=== PATIENT | female | born 1980 | race Caucasian/White ===

== ENCOUNTER 2019-02-02 19:49 | Emergency (ER) | payer OTHER, MEDICAID, SELFPAY ==
--- NOTE | 2019-02-02 19:51 | ED.GENADULT ---
HPI - General Adult General Chief complaint: Seizure Stated complaint: Fit For Care Home Time Seen by Provider: 02/02/19 19:50 Source: patient and police Mode of arrival: other (Police) Limitations: no limitations History of Present Illness HPI narrative: 38-year-old female brought in by police for a fit for usp physical. She reported that earlier today patient had a seizure. Patient states that she has a history of seizures. She states it is because she has a mass on her brain. She states that she has been on ?all of the seizure medicines ?in the past and none of them have worked. She does see a neurologist. She also stated that she had been told that stress makes her seizures worse. She also has other psychiatric illnesses to include bipolar. She was brought in for AFib for usp secondary to her history of seizures. She has not have any of her medicines with her Related Data Home Medications Medication Instructions Recorded Confirmed cyclobenzaprine 10 mg PO TID #0 06/15/17 03/02/18 lithium carbonate 300 mg PO BID #0 06/15/17 03/02/18 quetiapine [Seroquel] 150 mg PO HS #0 06/15/17 03/02/18 venlafaxine 100 mg PO QDAY #0 06/15/17 03/02/18 Previous Rx's Medication Instructions Recorded cyclobenzaprine 10 mg PO Q8HP PRN #20 tab 06/15/17 lithium carbonate 300 mg PO BID #28 cap 02/02/19 nystatin 4 ml PO QID #473 ml 02/02/19 quetiapine [Seroquel XR] 150 mg PO QPM #14 tab 02/02/19 venlafaxine 100 mg PO DAILY #14 tab 02/02/19 Allergies Allergy/AdvReac Type Severity Reaction Status Date / Time tramadol [TRAMADOL] Allergy Unknown Verified 03/02/18 11:44 Review of Systems Constitutional Denies headache(s) ENT Ears, Nose, Mouth, and Throat: Denies headache(s) Comments: Thrush in her mouth Gastrointestinal Gastrointestinal: Denies abdominal pain Genitourinary Denies dysuria Neurologic Denies headache(s) and Reports seizure-like activity Hematologic/Lymphatic Denies easy bleeding and Denies easy bruising PFSH Medical History Bipolar disorder (Acute) Seizure disorder (Acute) Social History Smoking Status: Current every day smoker Social History Smoking Status: Current every day smoker Exam Initial Vital Signs Initial Vital Signs: Vital Signs Temperature 98.5 F 02/02/19 19:59 Pulse Rate 76 02/02/19 19:59 Respiratory Rate 15 02/02/19 19:59 Blood Pressure 116/79 02/02/19 19:59 Pulse Oximetry 98 02/02/19 19:59 Const General: cooperative, well developed and well groomed Orientation: alert, awake and oriented x3 HENMT Mouth: other (White patches in her mouth) Resp Effort & Inspection: normal respiratory effort Cardio Rate: regular rate Skin Lesions: no lesions Rashes: no rashes Neuro General: alert, awake and oriented x3 Cognition: normal cognition Speech: speech normal Extrem General: normal to inspection and capillary refill normal Scores GCS [place] coma scale eye opening: Spontaneous [place] coma scale verbal response: Orientated [place] coma scale motor response: Obey commands [place] coma scale total score: 15 Course Vital Signs - 8 hr 02/02/19 19:59 Temperature 98.5 F Pulse Rate 76 Respiratory Rate 15 Blood Pressure 116/79 Pulse Oximetry 98 Medical Decision Making MDM Narrative Medical decision making narrative: Patient has no signs of trauma. She is fit for confinement I did write 2 weeks worth of medications that we have listed in our computer for her so that she can have them while she is in confinement. She states she is taking other medications but we do not know what those are. No further workup needed in the emergency department Discharge Plan Departure Patient Disposition: Released, Other Clinical Impression: Medical clearance for incarceration Discharge Date/Time: 02/02/19 20:24 Interventions: ED Discharge Assessment Last Done: 02/02/19 20:23 Activity Restrictions/Additional Instructions: Nallely is fit for confinement. I do recommend she be given the medications that she has been given a prescription for. When she is released I recommend that she follow up with her primary care provider. Prescriptions: New lithium carbonate 300 mg capsule 300 mg PO BID Qty: 28 RF: 0 quetiapine [Seroquel XR] 150 mg tablet extended release 24 hr 150 mg PO QPM Qty: 14 RF: 0 venlafaxine 100 mg tablet 100 mg PO DAILY Qty: 14 RF: 0 nystatin 100,000 unit/mL suspension 4 ml PO QID Qty: 473 RF: 0 No Action cyclobenzaprine 10 MG tablet 10 mg PO TID Qty: 0 RF: 0 venlafaxine 100 MG tablet 100 mg PO QDAY Qty: 0 RF: 0 quetiapine [Seroquel] 100 MG tablet 150 mg PO HS Qty: 0 RF: 0 lithium carbonate 300 MG capsule 300 mg PO BID Qty: 0 RF: 0 cyclobenzaprine 10 MG tablet 10 mg PO Q8HP PRNQty: 20 RF: 0
[2019-02-02 19:59] VITALS: BP 116/79; PULSE 76; RESP 15; TEMP 36.9; O2SAT 98; BMI 33.2
== END 2019-02-02 20:24 | disposition home or self-care (01) ==
PROVIDERS: Emergency Provider Emergency Medicine
DX: Z02.89 Encounter for other administrative examinations (principal)
CPT/HCPCS: 99282; 99283

== ENCOUNTER 2019-02-16 18:35 | Emergency (ER) | payer OTHER, MEDICAID, SELFPAY ==
[2019-02-16 18:54] VITALS: BP 136/75; PULSE 101; RESP 21; TEMP 37.1; O2SAT 100; BMI 28.1
--- NOTE | 2019-02-16 18:55 | DI.RAD.S_ITS ---
PROCEDURE: XR CHEST 2V INDICATIONS: SOB TECHNIQUE: 2 views of the chest were acquired. COMPARISON: None. FINDINGS: Surgical changes and devices: None. Lungs and pleura: Lungs are clear. No pleural effusions or pneumothorax. Mediastinum: Mediastinal contours are normal. Heart size is normal. Bones and chest wall: No suspicious bony abnormalities. Soft tissues appear unremarkable. IMPRESSION: No acute cardiopulmonary disease process. Dictated by: Aby Davis MD, PhD on 02/16/2019 at 19:10 Approved by: Aby Davis MD, PhD on 02/16/2019 at 19:10
--- NOTE | 2019-02-16 19:13 | ED.SOB ---
HPI - SOB/Dyspnea General Chief Complaint: Shortness of Breath/Dyspnea Stated Complaint: sob/legs swelling x3-4 days Time Seen by Provider: 02/16/19 18:40 Source: patient Mode of arrival: ambulatory Limitations: no limitations History of Present Illness HPI Narrative: 38-year-old female smoker with recent history of smoking methamphetamines presents to the emergency department with a chief complaint of bilateral lower extremity swelling and some shortness of. She denies any chest pain nor fever or chills. She has not dizzy nor weak or lightheaded. She denies nausea, vomiting or diarrhea. She denies any other medication or dietary change. She denies recent travel, injury or history of clot. MD Complaint: shortness of breath Related Data Home Medications Medication Instructions Recorded Confirmed cyclobenzaprine 10 mg PO TID #0 06/15/17 03/02/18 lithium carbonate 300 mg PO BID #0 06/15/17 03/02/18 quetiapine [Seroquel] 150 mg PO HS #0 06/15/17 03/02/18 venlafaxine 100 mg PO QDAY #0 06/15/17 03/02/18 Previous Rx's Medication Instructions Recorded cyclobenzaprine 10 mg PO Q8HP PRN #20 tab 06/15/17 lithium carbonate 300 mg PO BID #28 cap 02/02/19 nystatin 4 ml PO QID #473 ml 02/02/19 quetiapine [Seroquel XR] 150 mg PO QPM #14 tab 02/02/19 venlafaxine 100 mg PO DAILY #14 tab 02/02/19 furosemide [Lasix] 40 mg PO DAILY #5 tab 02/16/19 Allergies Allergy/AdvReac Type Severity Reaction Status Date / Time tramadol [TRAMADOL] Allergy Unknown Verified 03/02/18 11:44 Review of Systems Constitutional Constitutional: Denies chills, Denies fatigue, Denies fever(s), Denies frequent falls, Denies lethargy and Denies weakness Eyes Eyes: Denies change in vision, Denies eye discharge, Denies irritation and Denies loss of vision ENT Ears, Nose, Mouth, and Throat: Denies change in voice, Denies dizziness, Denies neck pain, Denies sore throat and Denies throat swelling Cardiovascular Cardiovascular: Denies chest pain, Denies irregular heart rhythm, Reports leg edema, Denies lightheadedness, Denies palpitations, Denies dyspnea, Denies dyspnea on exertion and Denies orthopnea Respiratory Respiratory: Denies cough, Denies dyspnea, Denies dyspnea on exertion and Denies wheezing Gastrointestinal Gastrointestinal: Denies abdominal pain, Denies change in bowel habits, Denies diarrhea, Denies nausea and Denies vomiting Genitourinary Genitourinary: Denies hematuria, Denies flank pain, Denies urinary incontinence and Denies urinary urgency Musculoskeletal Musculoskeletal: Denies back pain, Denies muscle weakness, Denies neck pain, Denies numbness and Denies tingling Integumentary/Breasts Skin/Breast: Denies pruritus, Denies erythema, Denies rash and Denies wounds Neurologic Neurologic: Denies behavioral changes, Denies confusion, Denies dizziness, Denies frequent falls, Denies loss of vision, Denies numbness, Denies tingling and Denies weakness Psychiatric Psychiatric: Denies anxiety, Denies behavioral changes, Denies confusion, Denies depression, Denies homicidal ideation and Denies suicidal ideation Endocrine Endocrine: Denies fatigue, Denies flushing and Denies palpitations Hematologic/Lymphatic Hematologic/Lymphatic: Denies easy bruising Allergic/Immunologic Allergic/Immunologic: Denies urticaria, Denies throat swelling and Denies wheezing [facility] Medical History Bipolar disorder (Acute) Seizure disorder (Acute) Social History Smoking Status: Current every day smoker Social History Smoking Status: Current every day smoker Exam Narrative Exam Narrative: GENERAL: [38] year old patient appears stated age. Well-nourished, well-developed patient, in mild distress. HEAD: Atraumatic. Normocephalic. EYES: Pupils equal round and reactive. Extraocular motions intact. No scleral icterus. No injection or drainage. ENT: Nose without bleeding, purulent drainage. Throat without erythema, tonsillar hypertrophy or exudate. Airway patent. NECK: Trachea midline. Non tender CARDIOVASCULAR: Regular rate and rhythm without murmurs, gallops, or rubs. RESPIRATORY: Clear to auscultation. Breath sounds equal bilaterally. No wheezes, rales, or rhonchi. GASTROINTESTINAL: Abdomen soft, non-tender, nondistended. EXTREMITIES: Bilateral lower extremities with 1+ pitting edema BACK: Nontender without deformity or crepitance. No flank tenderness. NEURO: AOx3. SKIN: No rash or erythema of visible areas Initial Vital Signs Initial Vital Signs: Vital Signs Temperature 98.8 F 02/16/19 18:54 Pulse Rate 101 H 02/16/19 18:54 Respiratory Rate 21 02/16/19 18:54 Blood Pressure 136/75 02/16/19 18:54 Pulse Oximetry 100 02/16/19 18:54 Course Orders Ordered: ED Orders 02/16/19 18:44 EKG-12 Lead Routine EKG-12 Lead Stat 02/16/19 18:53 Consult to Respiratory Therapy Evaluate & Treat B Type Natriuretic Peptide Stat Basic Metabolic Panel Stat Blood Culture Stat Complete Blood Count AUTO DIFF Stat Lactate (Lactic Acid) Stat Magnesium Stat Procalcitonin Stat Troponin & CK Cardiac Panel Stat 02/16/19 18:55 XR chest 2V Stat Vital Signs Vital signs: Vital Signs - 8 hr 02/16/19 18:54 Temperature 98.8 F Pulse Rate 101 H Respiratory Rate 21 Blood Pressure 136/75 Pulse Oximetry 100 MDM - SOB/Dyspnea Lab Data Result diagrams: 02/16/19 19:50 02/16/19 19:50 Labs: Lab Results 02/16/19 02/16/19 02/16/19 Range/Units 19:50 19:50 19:50 WBC 8.6 (4.5-11.0) X10^3/uL RBC 3.63 L (4.0-5.2) X10^6/uL Hgb 12.5 (12.0-16.0) g/dL Hct 36.0 (36-46) % MCV 99.3 (80-100) fL MCH 34.4 H (26-34) PG MCHC 34.6 (30-36) % RDW 12.8 (11.6-14.8) % Plt Count 237 (150-400) X10^3/uL Neut % (Auto) 52.0 (50-75) % Lymph % (Auto) 39.9 (25-40) % [place] % (Auto) 5.0 (3-14) % Eos % (Auto) 2.5 (2-4) % Baso % (Auto) 0.6 (0-2) % Neut # (Auto) 4500 (0903-2521) /uL Lymph # (Auto) 3400 (6710-3966) /uL [place] # (Auto) 400 (0-900) /uL Eos # (Auto) 200 (0-450) /uL Baso # (Auto) 100 (0-100) /uL D-Dimer (<230) ng/mL Sodium 139 (137-145) mmol/L Potassium 3.4 (3.4-5.1) mmol/L Chloride 109 H (98-107) mmol/L Carbon Dioxide 22 (22-32) mmol/L BUN 9 (7-17) mg/dL Creatinine 0.70 (0.52-1.04) mg/dL Estimated GFR > 60.0 (>60) mL/min BUN/Creatinine Ratio 12.9 (6-22) Glucose 98 (70-100) mg/dL Lactate (0.7-2.1) mmol/L Calcium 9.6 (8.4-10.2) mg/dL Magnesium 2.0 (1.6-2.3) mg/dL Total Creatine Kinase 70 (30-135) U/L CK-MB (CK-2) TNP CK-MB (CK-2) Rel Index TNP Troponin I < 0.012 (0.01-0.034) ng/mL B-Natriuretic Peptide < 100 (<100) Procalcitonin < 0.05 (<0.5) ng/mL 02/16/19 02/16/19 Range/Units 19:50 19:50 WBC (4.5-11.0) X10^3/uL RBC (4.0-5.2) X10^6/uL Hgb (12.0-16.0) g/dL Hct (36-46) % MCV (80-100) fL MCH (26-34) PG MCHC (30-36) % RDW (11.6-14.8) % Plt Count (150-400) X10^3/uL Neut % (Auto) (50-75) % Lymph % (Auto) (25-40) % [place] % (Auto) (3-14) % Eos % (Auto) (2-4) % Baso % (Auto) (0-2) % Neut # (Auto) (4567-8362) /uL Lymph # (Auto) (8248-2319) /uL [place] # (Auto) (0-900) /uL Eos # (Auto) (0-450) /uL Baso # (Auto) (0-100) /uL D-Dimer < 200 (<230) ng/mL Sodium (137-145) mmol/L Potassium (3.4-5.1) mmol/L Chloride (98-107) mmol/L Carbon Dioxide (22-32) mmol/L BUN (7-17) mg/dL Creatinine (0.52-1.04) mg/dL Estimated GFR (>60) mL/min BUN/Creatinine Ratio (6-22) Glucose (70-100) mg/dL Lactate 0.7 (0.7-2.1) mmol/L Calcium (8.4-10.2) mg/dL Magnesium (1.6-2.3) mg/dL Total Creatine Kinase (30-135) U/L CK-MB (CK-2) CK-MB (CK-2) Rel Index Troponin I (0.01-0.034) ng/mL B-Natriuretic Peptide (<100) Procalcitonin (<0.5) ng/mL Imaging Data Chest x-ray: Radiologist's impression: [place] [address] XRay Report Signed Patient: Nallely [facility]#: [id number] : 1980Acct:[id number] Age/Sex: 38 / FDate of Service: 02/16/19 Loc: ED Accession Number: [id number] Procedure: XR chest 2V Ordering Provider: Jose David Ricks D.O. PROCEDURE: XR CHEST 2V INDICATIONS: SOB TECHNIQUE: 2 views of the chest were acquired. COMPARISON: None. FINDINGS: Surgical changes and devices: None. Lungs and pleura: Lungs are clear. No pleural effusions or pneumothorax. Mediastinum: Mediastinal contours are normal. Heart size is normal. Bones and chest wall: No suspicious bony abnormalities. Soft tissues appear unremarkable. IMPRESSION: No acute cardiopulmonary disease process. Dictated by: Aby Davis MD, PhD on 02/16/2019 at 19:10 Approved by: Aby Davis MD, PhD on 02/16/2019 at 19:10 MDM Narrative Medical decision making narrative: Near the end of the visit the patient states she recently got new couch is and has been sitting them for hours and hours per day with her legs dangling down. This seems like a very likely contributed to bilateral lower extremity edema. She has no signs of heart failure. Though edematous her legs are not red or warm, though cellulitis and DVT are considered their thought much less likely given the bilaterality. Return precautions given, patient has had her questions answered to her apparent satisfaction Discharge Plan Departure Patient Disposition: Home Clinical Impression: Dependent edema Discharge Date/Time: 02/16/19 22:00 Instructions: DI for Dependent Edema Activity Restrictions/Additional Instructions: *You have been diagnosed with [ bilateral edema ] *What to do: *Take medications as directed *Follow up with your primary care provider in 2-3 days, call for an appointment. Let them know you were seen in the Emergency Department and that we ask that you be seen in follow up. Elevate your legs and use compression stockings *Return to ER if you should have any new, worsening or concerning symptoms Prescriptions: New furosemide [Lasix] 40 mg tablet 40 mg PO DAILY Qty: 5 RF: 0 No Action cyclobenzaprine 10 MG tablet 10 mg PO TID Qty: 0 RF: 0 venlafaxine 100 MG tablet 100 mg PO QDAY Qty: 0 RF: 0 quetiapine [Seroquel] 100 MG tablet 150 mg PO HS Qty: 0 RF: 0 lithium carbonate 300 MG capsule 300 mg PO BID Qty: 0 RF: 0 cyclobenzaprine 10 MG tablet 10 mg PO Q8HP PRNQty: 20 RF: 0 lithium carbonate 300 mg capsule 300 mg PO BID Qty: 28 RF: 0 quetiapine [Seroquel XR] 150 mg tablet extended release 24 hr 150 mg PO QPM Qty: 14 RF: 0 venlafaxine 100 mg tablet 100 mg PO DAILY Qty: 14 RF: 0 nystatin 100,000 unit/mL suspension 4 ml PO QID Qty: 473 RF: 0
[2019-02-16 20:05] LABS: Add Manual Diff / Slide Review NO; Basophils Absolute Auto 100 /uL (0-100); Basophils Percent Auto 0.6 % (0-2); Eosinophils Absolute Auto 200 /uL (0-450); Eosinophils Percent Auto 2.5 % (2-4); Hemoglobin 12.5 g/dL (12.0-16.0); Lymphocytes Absolute Auto 3400 /uL (1100-4500); Lymphocytes Percent Auto 39.9 % (25-40); Mean Corpuscular HGB Conc 34.6 % (30-36); Mean Corpuscular Hemoglobin 34.4 PG (26-34); Mean Corpuscular Volume 99.3 fL (80-100); Monocytes Absolute Auto 400 /uL (0-900); Neutrophils Absolute Auto 4500 /uL (1500-7000); Platelet Count 237 X10^3/uL (150-400); Red Blood Cell Count 3.63 X10^6/uL (4.0-5.2); Red Cell Distribution Width 12.8 % (11.6-14.8); White Blood Cell Count 8.6 X10^3/uL (4.5-11.0)
[2019-02-16 20:16] LABS: Lactate (Lactic Acid) 0.7 mmol/L (0.7-2.1)
[2019-02-16 20:17] LABS: BUN Creatinine Ratio 12.9 (6-22); Blood Urea Nitrogen 9 mg/dL (7-17); Calcium 9.6 mg/dL (8.4-10.2); Carbon Dioxide 22 mmol/L (22-32); Chloride 109 mmol/L (98-107); Creatine Kinase 70 U/L (30-135); Estimated Glomerular Filt Rate > 60.0 mL/min (>60); Glucose 98 mg/dL (70-100); HEMOLYSIS < 15 (0-50); Potassium 3.4 mmol/L (3.4-5.1); Sodium 139 mmol/L (137-145)
[2019-02-16 20:18] VITALS: BP 136/81; PULSE 86; RESP 20; O2SAT 100
[2019-02-16 20:24] LABS: B Type Natriuretic Peptide < 100 (<100); D Dimer < 200 ng/mL (<230)
[2019-02-16 20:29] LABS: Troponin I < 0.012 ng/mL (0.01-0.034)
[2019-02-16 20:30] VITALS: BP 133/83; PULSE 74; RESP 16
[2019-02-16 20:35] LABS: Procalcitonin < 0.05 ng/mL (<0.5)
[2019-02-16 21:00] VITALS: BP 127/81; PULSE 83; RESP 19
[2019-02-16 21:59] VITALS: BP 121/74; PULSE 78
== END 2019-02-16 22:00 | disposition home or self-care (01) ==
PROVIDERS: Emergency Provider Emergency Medicine
DX: R60.9 Edema, unspecified (principal); R06.02 Shortness of breath
CPT/HCPCS: 36415; 36591; 71046; 80048; 82550; 83605; 83735; 83880; 84145; 84484; 85025; 85379; 87040; 93005; 99283; 99285

== ENCOUNTER 2019-08-11 13:29 | Emergency (ER) | payer OTHER, MEDICAID, SELFPAY ==
[2019-08-11 13:35] VITALS: BP 123/76; PULSE 98; RESP 18; TEMP 36.9; O2SAT 98
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
[2019-08-11] MEDS: PROPARACAINE 0.5% OPHTH SOL 1 DROPS EYE-LEFT (14:17)
[2019-08-11] MEDS: FLUORESCEIN 1 MG STRIP EYE-RIGHT (14:18)
== END 2019-08-11 14:22 | disposition home or self-care (01) ==
PROVIDERS: Emergency Provider Emergency Medicine
DX: S05.02XA Injury of conjunctiva and corneal abrasion without foreign body, left eye, initial encounter (principal)
CPT/HCPCS: 99281; 99282

== ENCOUNTER 2021-04-29 16:21 | Emergency (ER) | payer OTHER, MEDICAID, SELFPAY ==
--- NOTE | 2021-04-29 16:33 | DI.RAD.S_ITS ---
PROCEDURE: XR CHEST 2V INDICATIONS: hurts with breathing TECHNIQUE: 2 views of the chest were acquired. COMPARISON: [facility], CR, XR CHEST 2V, 02/16/2019, 18:59. FINDINGS: Surgical changes and devices: None. Lungs and pleura: Lungs are clear. No pleural effusions or pneumothorax. Mediastinum: Mediastinal contours are normal. Heart size is normal. Bones and chest wall: No suspicious bony abnormalities. Soft tissues appear unremarkable. IMPRESSION: Stable radiographic evaluation of the chest without acute cardiopulmonary abnormalities or focal airspace disease. Dictated by: Horacio Merida M.D. on 04/29/2021 at 16:48 Approved by: Horacio Merida M.D. on 04/29/2021 at 16:48
[2021-04-29 16:35] VITALS: BP 115/83; PULSE 98; RESP 22; TEMP 36.6; O2SAT 97; BMI 27.3
[2021-04-29 17:13] LABS: COVID19 -Nasal RAPID Negative (Negative)
[2021-04-29 17:59] LABS: Bacteria Urine Many (>30); Culture Indicated Urine Specimen Cultured; RBC Urine 0-1/HPF (0-5/HPF); Renal Epithelial Cells Urine 0-1/HPF (0-1/HPF); Transitional Epi Cells Urine 0-1/HPF (0-5/HPF); WBC Urine 5-10/HPF (0-5/HPF)
--- NOTE | 2021-04-29 19:17 | ED.HA ---
HPI - Headache General Chief Complaint: Headache Stated Complaint: Swollen Head/Black Vision/SOB/Lt Sided Abd Pain Time Seen by Provider: 04/29/21 19:17 Mode of arrival: Ambulatory History of Present Illness HPI Narrative: 40-year-old female smoker with history of mental health disease presents with family in the chief complaint of 1 week of various and widespread symptoms. She states that she has a squeezing sensation in her head and feels that her scalp is swollen and she can palpate lumps. She denies any trauma or injury. She has no fever or chills. She has had no nausea or vomiting. She denies any history of the same. She states that in addition to this squeezing headache, which has come on gradually and is absence of any photophobia, she occasionally has darkening of her vision. There does not seem to be any pattern to this and no obvious persistence. She denies any neurologic symptoms such as trouble with speech or numbness, tingling or weakness of her extremities. She denies any difficulty with ambulation. She states that she also has a palpable swollen area in her left abdomen that has been present for the same period of time. She states that it seems to come and go and causes her pain. She denies any change in bowel habits and is otherwise occasionally short of breath but denies any chest pain. She denies shortness of breath when lying flat or with exertion and is not currently short of breath but has been. She states that she has not been able to take any of her medications for the past week or so. She denies recent travel, exposure to ill persons Related Data Home Medications Medication Instructions Recorded Confirmed cyclobenzaprine 10 mg tablet 10 mg PO TID #0 06/15/17 03/02/18 lithium carbonate 300 mg capsule 300 mg PO BID #0 06/15/17 03/02/18 quetiapine 100 mg tablet (Seroquel) 150 mg PO HS #0 06/15/17 03/02/18 venlafaxine 100 mg tablet 100 mg PO QDAY #0 06/15/17 03/02/18 Previous Rx's Medication Instructions Recorded cyclobenzaprine 10 mg tablet 10 mg PO Q8HP PRN #20 tab 06/15/17 lithium carbonate 300 mg capsule 300 mg PO BID #28 cap 02/02/19 nystatin 100,000 unit/mL oral 4 ml PO QID #473 ml 08/24/19 suspension quetiapine 150 mg tablet,extended 150 mg PO QPM #14 tab 02/02/19 release 24 hr (Seroquel XR) venlafaxine 100 mg tablet 100 mg PO DAILY #14 tab 02/02/19 furosemide 40 mg tablet (Lasix) 40 mg PO DAILY #5 tab 02/16/19 levofloxacin 0.5 % eye drops 1 drop EYE-LEFT DIRECTED #5 ml 08/11/19 Allergies Allergy/AdvReac Type Severity Reaction Status Date / Time tramadol [TRAMADOL] Allergy Unknown Verified 04/29/21 16:39 Review of Systems Review of Systems Narrative: GENERAL: See HPI HEENT: Denies sinus pain, ear pain, sore throat, difficulty swallowing, dizziness. RESPIRATORY: Denies dyspnea, cough, wheezing, hemoptysis, sputum. CARDIOVASCULAR: See HPI GASTROINTESTINAL: See HPI : Denies dysuria, frequency, incontinence, hematuria, urinary retention. MUSCULOSKELETAL: denies weakness, joint pain, or bony pain SKIN: Denies rash, skin lesions, or other NEUROLOGIC: See HPI PSYCHIATRIC: No concerning psychosocial issues. 12 point review of systems is negative except for those stated above Patient History Medical History (Updated 04/29/21 @ 22:22 by Jose David Ricks DO) Bipolar disorder Seizure disorder Social History Smoking Status: Current every day smoker Smoking Status: Current every day smoker tobacco type: cigarettes alcohol intake frequency: holidays/special occasions only Substance Use Type: does not use and methamphetamine Exam Narrative Exam Narrative: GENERAL: [40 year old patient appears stated age. Well-developed patient, in mild distress. GCS 15 HEAD: Atraumatic. Normocephalic. No swelling, edema, induration, fluctuance, erythema or warmth noted. No abnormal findings obvious to the examiner EYES: Pupils equal round and reactive. Extraocular motions intact. No scleral icterus. No injection or drainage. ENT: Nose without bleeding, purulent drainage. Throat without erythema, tonsillar hypertrophy or exudate. Airway patent. NECK: Trachea midline. Non tender, no meningeal signs. Negative Brudzinski's, negative Kernig's CARDIOVASCULAR: Regular rate and rhythm without murmurs, gallops, or rubs. RESPIRATORY: Clear to auscultation. Breath sounds equal bilaterally. No wheezes, rales, or rhonchi. GASTROINTESTINAL: Abdomen soft, mildly tender in the left upper quadrant, no palpable swelling, induration. Bowel sounds present in all 4 quadrants nondistended. EXTREMITIES: No edema or joint tenderness. BACK: Nontender without deformity or crepitance. No flank tenderness. NEURO: AOx3. SKIN: No rash or erythema of visible areas Initial Vital Signs Initial Vital Signs: Vital Signs Temperature 98 F 04/29/21 16:35 Pulse Rate 98 H 04/29/21 16:35 Respiratory Rate 22 04/29/21 16:35 Blood Pressure 115/83 04/29/21 16:35 Pulse Oximetry 97 04/29/21 16:35 Course Orders Ordered: ED Orders 04/29/21 21:02 XR abdomen min 2V Stat Discontinued Medications Diphenhydramine HCl (Diphenhydramine 50 Mg/Ml Vial) 25 mg IV NOW ONE Stop: 04/29/21 21:03 Last Admin: 04/29/21 21:21 Dose: 25 mg Documented by: PHILLY Ketorolac Tromethamine (Ketorolac 30 Mg/Ml Vial) 15 mg IV NOW ONE Stop: 04/29/21 21:03 Last Admin: 04/29/21 21:21 Dose: 15 mg Documented by: PHILLY Metoclopramide HCl (Metoclopramide 10 Mg/2 Ml Inj) 10 mg IV NOW ONE Stop: 04/29/21 21:03 Last Admin: 04/29/21 21:20 Dose: 10 mg Documented by: PHILLY Vital Signs Vital signs: Vital Signs - 8 hr 04/29/21 22:33 Pulse Rate 86 Respiratory Rate 16 Blood Pressure 98/57 L Pulse Oximetry 99 MDM - Headache Lab Data Result diagrams: 04/29/21 19:37 04/29/21 19:37 Labs: Lab Results 04/29/21 04/29/21 04/29/21 Range/Units 16:32 17:26 19:37 WBC 8.4 (4.5-11.0) X10^3/uL RBC 3.99 L (4.0-5.2) X10^6/uL Hgb 13.2 (12.0-16.0) g/dL Hct 38.8 (36-46) % MCV 97.2 (80-100) fL MCH 33.2 (26-34) PG MCHC 34.1 (30-36) % RDW 12.9 (11.6-14.8) % Plt Count 304 (150-400) X10^3/uL Neut % (Auto) 47.1 L (50-75) % Lymph % (Auto) 44.9 H (25-40) % [place] % (Auto) 5.1 (3-14) % Eos % (Auto) 1.9 L (2-4) % Baso % (Auto) 1.0 (0-2) % Neut # (Auto) 4000 (3171-1525) /uL Lymph # (Auto) 3800 (3929-7476) /uL [place] # (Auto) 400 (0-900) /uL Eos # (Auto) 200 (0-450) /uL Baso # (Auto) 100 (0-100) /uL Sodium (137-145) mmol/L Potassium (3.4-5.1) mmol/L Chloride (98-107) mmol/L Carbon Dioxide (22-32) mmol/L BUN (7-17) mg/dL Creatinine (0.52-1.04) mg/dL Estimated GFR (>60) mL/min BUN/Creatinine Ratio (6-22) Glucose (70-100) mg/dL Calcium (8.4-10.2) mg/dL Total Bilirubin (0.2-1.3) mg/dL AST (14-36) IU/L ALT (<35) IU/L Alkaline Phosphatase (38-126) U/L Total Creatine Kinase (30-135) U/L CK-MB (CK-2) CK-MB (CK-2) Rel Index Troponin I (0.01-0.034) ng/mL Total Protein (6.3-8.2) g/dL Albumin (3.5-5.0) g/dL Globulin (1.7-4.1) g/dL Albumin/Globulin Ratio (1.0-2.8) Lipase (23-300) U/L Urine RBC 0-1/hpf (0-5/HPF) Urine WBC 5-10/hpf H (0-5/HPF) Ur Transition Epith Cell 0-1/hpf (0-5/HPF) Ur Renal Epithelial Cell 0-1/hpf (0-1/HPF) Urine Bacteria Many (>30) H (None) Ur Culture Indicated? Specimen cultured SARS-CoV-2 (PCR) Negative (Negative) 04/29/21 Range/Units 19:37 WBC (4.5-11.0) X10^3/uL RBC (4.0-5.2) X10^6/uL Hgb (12.0-16.0) g/dL Hct (36-46) % MCV (80-100) fL MCH (26-34) PG MCHC (30-36) % RDW (11.6-14.8) % Plt Count (150-400) X10^3/uL Neut % (Auto) (50-75) % Lymph % (Auto) (25-40) % [place] % (Auto) (3-14) % Eos % (Auto) (2-4) % Baso % (Auto) (0-2) % Neut # (Auto) (9323-3218) /uL Lymph # (Auto) (5442-4223) /uL [place] # (Auto) (0-900) /uL Eos # (Auto) (0-450) /uL Baso # (Auto) (0-100) /uL Sodium 138 (137-145) mmol/L Potassium 4.1 (3.4-5.1) mmol/L Chloride 103 (98-107) mmol/L Carbon Dioxide 29 (22-32) mmol/L BUN 15 (7-17) mg/dL Creatinine 0.87 (0.52-1.04) mg/dL Estimated GFR > 60.0 (>60) mL/min BUN/Creatinine Ratio 17.2 (6-22) Glucose 100 (70-100) mg/dL Calcium 9.3 (8.4-10.2) mg/dL Total Bilirubin 0.4 (0.2-1.3) mg/dL AST 19 (14-36) IU/L ALT 13 (<35) IU/L Alkaline Phosphatase 59 (38-126) U/L Total Creatine Kinase 66 (30-135) U/L CK-MB (CK-2) TNP CK-MB (CK-2) Rel Index TNP Troponin I < 0.012 (0.01-0.034) ng/mL Total Protein 6.9 (6.3-8.2) g/dL Albumin 4.3 (3.5-5.0) g/dL Globulin 2.6 (1.7-4.1) g/dL Albumin/Globulin Ratio 1.7 (1.0-2.8) Lipase 121 (23-300) U/L Urine RBC (0-5/HPF) Urine WBC (0-5/HPF) Ur Transition Epith Cell (0-5/HPF) Ur Renal Epithelial Cell (0-1/HPF) Urine Bacteria (None) Ur Culture Indicated? SARS-CoV-2 (PCR) (Negative) Point of Care Testing Test Results Negative Urine Dip Bedside Urine Glucose Negative Bedside Urine Bilirubin - Negative Bedside Urine Ketone - Negative Urine Specific [place] 1.030 Bedside Urine Occult Blood +/- Bedside Urine pH 6.0 Bedside Urine Protein - Negative Bedside Urine Urobilinogen 0.2 Bedside Urine Nitrite + Positive Bedside Urine Leukocytes - Negative Esterase Imaging Data Abdominal x-ray: Radiologist's Impression: Nallely Renteria??40??F??1980 ? Allergy/Adv: tramadol Close Abdomen X-Ray (Signed) Judd Murillo - 04/29/21 Chest X-Ray (Signed) MagnoliaHoracio - 04/29/21 Chest X-Ray (Signed) Aby Davis - 02/16/19 Radiology - Historical 10/07/17 Radiology - Historical 10/07/17 Launch?[place] [address] XRay Report Signed Patient: Nallely Renteria MR#: [id number] : 1980 Acct:[id number] Age/Sex: 40 / F Date of Service: 04/29/21 Loc: ED Accession Number: [id number] ?? Procedure: XR abdomen min 2V Ordering Provider: Jose David Ricks D.O. PROCEDURE:? XR ABDOMEN MIN 2V ? INDICATIONS:? chest pain, left flank pain ? TECHNIQUE:? 2 views of the abdomen were acquired.? ? COMPARISON:? None. ? FINDINGS:? Surgical changes and devices:? Bilateral surgical clips are demonstrated within the pelvis.? ? Bowel:? No pneumoperitoneum.? The bowel gas pattern is within normal limits.? ? Soft tissues:? No suspicious abdominal calcifications.? Specifically, no definite radiopaque renal stone identified.? ? Bones:? No suspicious bony abnormalities.? ? IMPRESSION:? ? 1. No acute intra-abdominal radiographic abnormality.? ? ? Dictated by: Judd Murillo M.D. on 04/29/2021 at 21:39 ? ? Approved by: Judd Murillo M.D. on 04/29/2021 at 21:4 Chest x-ray: Radiologist's Impression: Nallely Renteria??40??F??1980 ? Allergy/Adv: tramadol Close Abdomen X-Ray (Signed) Judd Murillo - 04/29/21 Chest X-Ray (Signed) Horacio Merida - 04/29/21 Chest X-Ray (Signed) Aby Davis - 02/16/19 Radiology - Historical 10/07/17 Radiology - Historical 10/07/17 Launch?[place] [address] XRay Report Signed Patient: Nallely Renteria MR#: [id number] : 1980 Acct:[id number] Age/Sex: 40 / F Date of Service: 04/29/21 Loc: ED Accession Number: [id number] ?? Procedure: XR abdomen min 2V Ordering Provider: Jose David Ricks D.O. PROCEDURE:? XR ABDOMEN MIN 2V ? INDICATIONS:? chest pain, left flank pain ? TECHNIQUE:? 2 views of the abdomen were acquired.? ? COMPARISON:? None. ? FINDINGS:? Surgical changes and devices:? Bilateral surgical clips are demonstrated within the pelvis.? ? Bowel:? No pneumoperitoneum.? The bowel gas pattern is within normal limits.? ? Soft tissues:? No suspicious abdominal calcifications.? Specifically, no definite radiopaque renal stone identified.? ? Bones:? No suspicious bony abnormalities.? ? IMPRESSION:? ? 1. No acute intra-abdominal radiographic abnormality.? ? ? Dictated by: Judd Murillo M.D. on 04/29/2021 at 21:39 ? ? Approved by: Judd Murillo M.D. on 04/29/2021 at 21:4 [facility] Narrative Medical decision making narrative: Headache considerations include, but not limited to: Subarachnoid hemorrhage, but unlikely as patient denies sudden onset of pain, not worst of life, or neck pain Meningitis considered, but thought unlikely given lack of Brudzinski's, Kernig's sign, altered mental status or fever Giant cell arteritis considered, but thought unlikely given lack of unilateral findings, pain in roman catholic, vision change HTN Emergency considered, but thought unlikely given normal vitals Other serious diagnoses considered unlikely given lack of red flag findings such as sudden onset, increasing frequency, immunocompromise, systemic signs (fever, chills, stiff neck, or rash), focal neurologic findings, trauma, blood thinners, etc. Patient has reassuring history and physical exam. Imaging demonstrates no bowel obstruction, pneumonia, pneumothorax or other abnormal finding. Labs are very reassuring. Patient is feeling much better after the above-stated therapies. She is given return precautions and questions have been answered to her apparent satisfaction Discharge Plan Departure Patient Disposition: Home Clinical Impression: Atypical migraine, Abdominal pain Activity Restrictions/Additional Instructions: *You have been diagnosed with [atypical migraine, nonspecific abdominal pain. Your history, physical exam, labs and imaging are all very reassuring. There is no obvious were clear explanation for the symptoms though being off of your medications could certainly be playing a role. *What to do: *Please continue to take your regular medications as directed. [ ] New medication prescriptions sent to your pharmacy: [ ] [ ] New medication written as a paper prescription [ x] No new medications given *Please follow up with your primary care provider in 2-3 days, call for an appointment. Let them know you were seen in the Emergency Department and that we ask that you be seen in follow up. We will electronically transmit a record of today's note if your PCP is in our system *If you do not have a primary care provider please contact the [facility] Resource line at [phone]. They will ask some questions about your medical history and help get you set up with a doctor in the community. *Return to Emergency Department if you should have any new, worsening or concerning symptoms, such as [fever greater than 101 F, shaking chills, worsening pain, persistent vomiting or other bothersome symptoms] Prescriptions: No Action cyclobenzaprine 10 MG tablet 10 mg PO TID Qty: 0 0RF venlafaxine 100 MG tablet 100 mg PO QDAY Qty: 0 0RF quetiapine [Seroquel] 100 MG tablet 150 mg PO HS Qty: 0 0RF lithium carbonate 300 MG capsule 300 mg PO BID Qty: 0 0RF cyclobenzaprine 10 MG tablet 10 mg PO Q8HP PRNQty: 20 0RF lithium carbonate 300 mg capsule 300 mg PO BID Qty: 28 0RF quetiapine [Seroquel XR] 150 mg tablet extended release 24 hr 150 mg PO QPM Qty: 14 0RF venlafaxine 100 mg tablet 100 mg PO DAILY Qty: 14 0RF nystatin 100,000 unit/mL suspension 4 ml PO QID Qty: 473 0RF Rx Instructions: administer 1/2 of dose in each side of the mouth furosemide [Lasix] 40 mg tablet 40 mg PO DAILY Qty: 5 0RF levofloxacin 0.5 % drops 1 drop EYE-LEFT DIRECTED Qty: 5 0RF Rx Instructions: 2 gtt l eye q 2h while awake for 2 days then q 6h for next 5 days
[2021-04-29 19:43] LABS: Add Manual Diff / Slide Review NO; Basophils Absolute Auto 100 /uL (0-100); Eosinophils Absolute Auto 200 /uL (0-450); Eosinophils Percent Auto 1.9 % (2-4); Hematocrit 38.8 % (36-46); Hemoglobin 13.2 g/dL (12.0-16.0); Lymphocytes Absolute Auto 3800 /uL (1100-4500); Lymphocytes Percent Auto 44.9 % (25-40); Mean Corpuscular HGB Conc 34.1 % (30-36); Mean Corpuscular Hemoglobin 33.2 PG (26-34); Mean Corpuscular Volume 97.2 fL (80-100); Monocytes Absolute Auto 400 /uL (0-900); Monocytes Percent Auto 5.1 % (3-14); Neutrophils Absolute Auto 4000 /uL (1500-7000); Neutrophils Percent Auto 47.1 % (50-75); Platelet Count 304 X10^3/uL (150-400); Red Blood Cell Count 3.99 X10^6/uL (4.0-5.2); Red Cell Distribution Width 12.9 % (11.6-14.8); White Blood Cell Count 8.4 X10^3/uL (4.5-11.0)
[2021-04-29 19:56] LABS: Alanine Aminotransferase 13 IU/L (<35); Albumin 4.3 g/dL (3.5-5.0); Albumin Globulin Ratio 1.7 (1.0-2.8); Alkaline Phosphatase 59 U/L (38-126); Aspartate Aminotransferase 19 IU/L (14-36); BUN Creatinine Ratio 17.2 (6-22); Bilirubin Total 0.4 mg/dL (0.2-1.3); Blood Urea Nitrogen 15 mg/dL (7-17); Calcium 9.3 mg/dL (8.4-10.2); Carbon Dioxide 29 mmol/L (22-32); Chloride 103 mmol/L (98-107); Creatine Kinase 66 U/L (30-135); Estimated Glomerular Filt Rate > 60.0 mL/min (>60); Globulin 2.6 g/dL (1.7-4.1); Glucose 100 mg/dL (70-100); HEMOLYSIS < 15 (0-50); Lipase 121 U/L (23-300); Potassium 4.1 mmol/L (3.4-5.1); Sodium 138 mmol/L (137-145); Total Protein 6.9 g/dL (6.3-8.2)
[2021-04-29 20:08] LABS: Troponin I < 0.012 ng/mL (0.01-0.034)
--- NOTE | 2021-04-29 21:02 | DI.RAD.S_ITS ---
PROCEDURE: XR ABDOMEN MIN 2V INDICATIONS: chest pain, left flank pain TECHNIQUE: 2 views of the abdomen were acquired. COMPARISON: None. FINDINGS: Surgical changes and devices: Bilateral surgical clips are demonstrated within the pelvis. Bowel: No pneumoperitoneum. The bowel gas pattern is within normal limits. Soft tissues: No suspicious abdominal calcifications. Specifically, no definite radiopaque renal stone identified. Bones: No suspicious bony abnormalities. IMPRESSION: 1. No acute intra-abdominal radiographic abnormality. Dictated by: Judd Murillo M.D. on 04/29/2021 at 21:39 Approved by: Judd Murillo M.D. on 04/29/2021 at 21:48
[2021-04-29] MEDS: METOCLOPRAMIDE 10 MG/2 ML INJ IV (21:20)
[2021-04-29] MEDS: diphenhydrAMINE 50 MG/ML VIAL 25 MG IV (21:21)
[2021-04-29] MEDS: KETOROLAC 30 MG/ML VIAL 15 MG IV (21:21)
[2021-04-29 22:33] VITALS: BP 98/57; PULSE 86; RESP 16; O2SAT 99
== END 2021-04-29 22:34 | disposition home or self-care (01) ==
PROVIDERS: Emergency Medicine; Emergency Provider Emergency Medicine
DX: G43.809 Other migraine, not intractable, without status migrainosus (principal); R10.9 Unspecified abdominal pain; Z20.822 Contact with and (suspected) exposure to COVID-19
CPT/HCPCS: 36415; 71046; 74019; 80053; 81003; 81015; 81025; 82550; 83690; 84484; 85025; 87077; 87086; 87186; 87635; 93005; 96374; 96375; 99284; C9803; J1200; J1885; J2765

== ENCOUNTER 2022-04-14 17:22 | Emergency (ER) | payer OTHER, MEDICAID, SELFPAY ==
--- NOTE | 2022-04-14 17:40 | DI.RAD.S_ITS ---
PROCEDURE: XR TIBIA FIBULA LT 2V INDICATIONS: ankle injury TECHNIQUE: 2 views of the tibia and fibula were acquired. COMPARISON: None. FINDINGS: Bones: No displaced fracture. No dislocation. Soft tissues: No suspicious calcifications. IMPRESSION: No acute radiographic abnormality. If there is high concern for occult injury, consider repeat radiography or cross-sectional imaging. Dictated by: Mike Murry M.D. on 04/14/2022 at 18:10 Approved by: Mike Murry M.D. on 04/14/2022 at 18:10
--- NOTE | 2022-04-14 17:40 | DI.RAD.S_ITS ---
PROCEDURE: XR ANKLE LT MIN 3V INDICATIONS: ankle injury TECHNIQUE: 3 views of the ankle were acquired. COMPARISON: None FINDINGS: Bones: No acute fracture or dislocation. The ankle mortise appears intact. Soft tissues: No tibiotalar joint effusion. Achilles tendon appears normal. IMPRESSION: No acute radiographic abnormality. If there is high concern for further derangement, consider MRI evaluation. Dictated by: Mike Murry M.D. on 04/14/2022 at 18:25 Approved by: Mike Murry M.D. on 04/14/2022 at 18:27
[2022-04-14 17:43] VITALS: BP 127/72; PULSE 97; RESP 17; TEMP 36.9; O2SAT 98; BMI 33.2
--- NOTE | 2022-04-14 17:54 | DI.RAD.S_ITS ---
PROCEDURE: XR KNEE LT 3V INDICATIONS: L knee pain TECHNIQUE: 3 views of the knee were acquired. COMPARISON: None. FINDINGS: Bones: No fractures or dislocations. No suspicious bony lesions. Soft tissues: No joint effusion. No suspicious soft tissue calcifications. IMPRESSION: No acute radiographic abnormality. If there is high concern for further derangement, consider MRI evaluation. Dictated by: Mike Murry M.D. on 04/14/2022 at 18:27 Approved by: Mike Murry M.D. on 04/14/2022 at 18:27
--- NOTE | 2022-04-14 17:54 | DI.RAD.S_ITS ---
PROCEDURE: XR FOOT LT MIN 3V INDICATIONS: L foot pain TECHNIQUE: 3 views of the foot were acquired. COMPARISON: None. FINDINGS: Bones: Mild 1st MTP arthrosis and hallux valgus alignment. Soft tissues: No suspicious calcifications. IMPRESSION: No acute radiographic abnormality. No displaced fracture or dislocation. If there is high concern for further derangement, consider MRI evaluation. Dictated by: Mike Murry M.D. on 04/14/2022 at 18:25 Approved by: Mike Murry M.D. on 04/14/2022 at 18:25
--- NOTE | 2022-04-14 18:39 | ED.LOWEXIN ---
HPI - Extremity Injury (Lower) <Geo Ro PA-C - Last Filed: 04/14/22 18:42> General Chief Complaint: Extremity Injury, Lower Stated Complaint: fell down stairs lt ankle,wrist pain Time Seen by Provider: 04/14/22 17:36 Source: patient Mode of arrival: Ambulatory History of Present Illness HPI Narrative: This is a 41-year-old female presents to the emergency department due to left lower extremity pain after tripping and falling down the stairs. Did not hit her head or lose consciousness. Complaining of left foot ankle riddle and knee pain. Denies any numbness, nausea, vomiting, or any other concerning signs or symptoms. Related Data Home Medications Medication Instructions Recorded Confirmed lithium carbonate 300 mg capsule 300 mg PO BID ##0 06/15/17 04/14/22 quetiapine 100 mg tablet (Seroquel) 150 mg PO HS ##0 06/15/17 03/02/18 venlafaxine 100 mg tablet 100 mg PO QDAY ##0 06/15/17 03/02/18 Previous Rx's Medication Instructions Recorded cyclobenzaprine 10 mg tablet 10 mg PO Q8HP PRN #20 tabs 06/15/17 lithium carbonate 300 mg capsule 300 mg PO BID #28 caps 02/02/19 nystatin 100,000 unit/mL oral 4 ml PO QID #473 mL 02/02/19 suspension quetiapine 150 mg tablet,extended 150 mg PO QPM #14 tabs 02/02/19 release 24 hr (Seroquel XR) venlafaxine 100 mg tablet 100 mg PO DAILY #14 tabs 02/02/19 furosemide 40 mg tablet (Lasix) 40 mg PO DAILY #5 tabs 02/16/19 levofloxacin 0.5 % eye drops 1 drop EYE-LEFT DIRECTED #5 mL 08/11/19 Allergies Allergy/AdvReac Type Severity Reaction Status Date / Time tramadol [TRAMADOL] Allergy Unknown Hallucinati Verified 04/14/22 17:47 ng Review of Systems <Geo Ro PA-C - Last Filed: 04/14/22 18:42> Review of Systems Narrative: GENERAL: Denies chills, fatigue, malaise, fever, sweats. HEENT: Denies sinus pain, ear pain, sore throat, difficulty swallowing, dizziness. RESPIRATORY: Denies dyspnea, cough, wheezing, hemoptysis, sputum. CARDIOVASCULAR: Denies chest pain, palpitations, orthopnea, edema, GASTROINTESTINAL: Denies nausea, vomiting, abdominal pain, diarrhea, constipation, melena. : Denies dysuria, frequency, incontinence, hematuria, urinary retention. MUSCULOSKELETAL: Left lower extremity pain, otherwise denies weakness, joint pain, or bony pain SKIN: Denies rash, skin lesions, or other NEUROLOGIC: Denies weakness, headache, numbness, change in speech, confusion, seizures, incoordination. PSYCHIATRIC: No concerning psychosocial issues. 12 point review of systems is negative except for those stated above Patient History <Geo Ro PA-C - Last Filed: 04/14/22 18:42> Medical History (Updated 04/14/22 @ 18:42 by Geo Ro PA-C) Bipolar disorder Seizure disorder Social History Smoking Status: Current every day smoker Smoking Status: Current every day smoker tobacco type: cigarettes alcohol intake frequency: holidays/special occasions only Substance Use Type: does not use and methamphetamine Exam <Geo Ro PA-C - Last Filed: 04/14/22 18:42> Narrative Exam Narrative: GENERAL: Well-developed patient, in mild distress. HEAD: Atraumatic. Normocephalic. EYES: Pupils equal round and reactive. Extraocular motions intact. No scleral icterus. No injection or drainage. ENT: Nose without bleeding, purulent drainage. Throat without erythema, tonsillar hypertrophy or exudate. Airway patent. NECK: Trachea midline. Non tender CARDIOVASCULAR: Regular rate and rhythm without murmurs, gallops, or rubs. RESPIRATORY: Clear to auscultation. Breath sounds equal bilaterally. No wheezes, rales, or rhonchi. GASTROINTESTINAL: Abdomen soft, non-tender, nondistended. EXTREMITIES: Generalized tenderness to palpation to the ankle, anterior riddle, and lateral knee. Neurovascularly intact throughout. BACK: Nontender without deformity or crepitance. No flank tenderness. NEURO: AOx3. SKIN: No rash or erythema of visible areas Initial Vital Signs Initial Vital Signs: Vital Signs Temperature 98.5 F 04/14/22 17:43 Pulse Rate 97 H 04/14/22 17:43 Respiratory Rate 17 04/14/22 17:43 Blood Pressure 127/72 04/14/22 17:43 Pulse Oximetry 98 04/14/22 17:43 Oxygen Delivery Method 04/14/22 17:43 <Esha Rowland DO - Last Filed: 04/15/22 03:58> Initial Vital Signs Initial Vital Signs: Vital Signs Temperature 98.5 F 04/14/22 17:43 Pulse Rate 97 H 04/14/22 17:43 Respiratory Rate 17 04/14/22 17:43 Blood Pressure 127/72 04/14/22 17:43 Pulse Oximetry 98 04/14/22 17:43 Oxygen Delivery Method 04/14/22 17:43 Course <Geo Ro PA-C - Last Filed: 04/14/22 18:42> Orders Ordered: ED Orders 04/14/22 17:40 XR ankle LT min 3V Stat XR tibia fibula LT 2V Stat 04/14/22 17:54 XR foot LT min 3V Stat XR knee LT 3V Stat Vital Signs Vital signs: Vital Signs - 8 hr 04/14/22 17:43 Temperature 98.5 F Pulse Rate 97 H Respiratory Rate 17 Blood Pressure 127/72 Pulse Oximetry 98 Oxygen Delivery Method Room Air <Esha Rowland DO - Last Filed: 04/15/22 03:58> Orders Ordered: ED Orders 04/14/22 17:40 XR ankle LT min 3V Stat XR tibia fibula LT 2V Stat 04/14/22 17:54 XR foot LT min 3V Stat XR knee LT 3V Stat Vital Signs Vital signs: Vital Signs - 8 hr 04/14/22 17:43 Temperature 98.5 F Pulse Rate 97 H Respiratory Rate 17 Blood Pressure 127/72 Pulse Oximetry 98 Oxygen Delivery Method Room Air MDM - Extremity Injury (Lower) <DEVIN Hernandez Last Filed: 04/14/22 18:42> Imaging Data Extremity x-ray #1: Radiologist's Impression: [address] [id number] ReportSigned Patient: Nallely Renteria MMR#: [id number]: 1980Acct:[id number]/Sex: 41 / FDate of Service: 04/14/22Loc: EDAccession Number: [id number] Procedure: XR foot LT min 3V Ordering Provider: Geo Ro P.A-C PROCEDURE: XR FOOT LT MIN 3V INDICATIONS: L foot pain TECHNIQUE: 3 views of the foot were acquired. COMPARISON: None. FINDINGS: Bones: Mild 1st MTP arthrosis and hallux valgus alignment. Soft tissues: No suspicious calcifications. IMPRESSION: No acute radiographic abnormality. No displaced fracture or dislocation. If there is high concern for further derangement, consider MRI evaluation. Dictated by: Mike Murry M.D. on 04/14/2022 at 18:25 Approved by: Mike Murry M.D. on 04/14/2022 at 18:[address] [id number] ReportSigned Patient: Nallely Renteria [facility]#: [id number]: 1980Acct:[id number]/Sex: 41 / FDate of Service: 04/14/22Lo: EDAccession Number: [id number] Procedure: XR knee LT 3V Ordering Provider: Geo Ro P.A-C PROCEDURE: XR KNEE LT 3V INDICATIONS: L knee pain TECHNIQUE: 3 views of the knee were acquired. COMPARISON: None. FINDINGS: Bones: No fractures or dislocations. No suspicious bony lesions. Soft tissues: No joint effusion. No suspicious soft tissue calcifications. IMPRESSION: No acute radiographic abnormality. If there is high concern for further derangement, consider MRI evaluation. Dictated by: Mike Murry M.D. on 04/14/2022 at 18:27 Approved by: Mike Murry M.D. on 04/14/2022 at 18:[address] [id number] ReportSigned Patient: Nallely Renteria [facility]#: [id number]: 1980Acct:[id number]/Sex: 41 / FDate of Service: 04/14/22Loc: EDAccession Number: [id number] Procedure: XR ankle LT min 3V Ordering Provider: Geo Ro P.A-C PROCEDURE: XR ANKLE LT MIN 3V INDICATIONS: ankle injury TECHNIQUE: 3 views of the ankle were acquired. COMPARISON: None FINDINGS: Bones: No acute fracture or dislocation. The ankle mortise appears intact. Soft tissues: No tibiotalar joint effusion. Achilles tendon appears normal. IMPRESSION: No acute radiographic abnormality. If there is high concern for further derangement, consider MRI evaluation. Dictated by: Mike Murry M.D. on 04/14/2022 at 18:25 Approved by: Mike Murry M.D. on 04/14/2022 at 18:[address] [id number] ReportSigned Patient: Nallely Renteria MMR#: [id number]: 1980Acct:[id number]/Sex: 41 / FDate of Service: 04/14/22Loc: EDAccession Number: [id number] Procedure: XR tibia fibula LT 2V Ordering Provider: Geo Ro P.A-C PROCEDURE: XR TIBIA FIBULA LT 2V INDICATIONS: ankle injury TECHNIQUE: 2 views of the tibia and fibula were acquired. COMPARISON: None. FINDINGS: Bones: No displaced fracture. No dislocation. Soft tissues: No suspicious calcifications. IMPRESSION: No acute radiographic abnormality. If there is high concern for occult injury, consider repeat radiography or cross-sectional imaging. Dictated by: Mike Murry M.D. on 04/14/2022 at 18:10 Approved by: Mike Murry M.D. on 04/14/2022 at 18:10 [facility] Narrative Medical decision making narrative: This through presenting to the emergency department due to a ground level fall and injured her left lower extremity. X-rays were taken of the left lower extremity which showed no evidence of any fractures. Recommended rest, ice, elevation, compression. Tylenol and ibuprofen as needed for the pain. Neurovascularly intact throughout. Discharge Plan Departure Patient Disposition: Home Clinical Impression: Sprain Instructions: DI for Leg Pain Activity Restrictions/Additional Instructions: Thank you for coming to the [facility] Emergency Department today. The x-rays of the foot, ankle, riddle, and knee were negative for any fractures. Please keep your leg elevated and use ibuprofen as Tylenol as needed for the pain. You may use crutches as needed until the pain improves. I hope you feel better soon. Prescriptions: No Action venlafaxine 100 MG tablet 100 mg PO QDAY Qty: 0 quetiapine [Seroquel] 100 MG tablet 150 mg PO HS Qty: 0 lithium carbonate 300 MG capsule 300 mg PO BID Qty: 0 cyclobenzaprine 10 MG tablet 10 mg PO Q8HP PRNQty: 20 0RF lithium carbonate 300 mg capsule 300 mg PO BID Qty: 28 0RF quetiapine [Seroquel XR] 150 mg tablet extended release 24 hr 150 mg PO QPM Qty: 14 0RF venlafaxine 100 mg tablet 100 mg PO DAILY Qty: 14 0RF nystatin 100,000 unit/mL suspension 4 ml PO QID Qty: 473 0RF Rx Instructions: administer 1/2 of dose in each side of the mouth furosemide [Lasix] 40 mg tablet 40 mg PO DAILY Qty: 5 0RF levofloxacin 0.5 % drops 1 drop EYE-LEFT DIRECTED Qty: 5 0RF Rx Instructions: 2 gtt l eye q 2h while awake for 2 days then q 6h for next 5 days Visit Report Forms: Patient Portal/API <Esha Rowland DO - Last Filed: 04/15/22 03:58> Cosign ED Attending Cosignature Attestation: I was immediately available in the department for consultation. Documentation has been reviewed.
[2022-04-14 19:09] VITALS: BP 120/70; PULSE 80; RESP 18; O2SAT 98
== END 2022-04-14 19:09 | disposition home or self-care (01) ==
PROVIDERS: Emergency Provider Physician Assistant Medical
DX: S93.402A Sprain of unspecified ligament of left ankle, initial encounter (principal); W18.30XA Fall on same level, unspecified, initial encounter
CPT/HCPCS: 73562; 73590; 73610; 73630; 99281; 99283

== ENCOUNTER → 2022-11-28 13:09 | Outpatient (CLI) | payer OTHER, MEDICAID, SELFPAY ==
--- NOTE | 2022-11-28 13:12 | DI.RAD.S_ITS ---
PROCEDURE: XR HUMERUS RT 2V INDICATIONS: Right extremity pain TECHNIQUE: 2 views of the humerus were acquired. COMPARISON: None. FINDINGS: Bones: No fractures or dislocations. No suspicious bony lesions. Soft tissues: No suspicious soft tissue calcifications. IMPRESSION: No humeral fracture or dislocation. No gross soft tissue abnormalities. Dictated by: Scotty Neff M.D. on 11/28/2022 at 15:43 Approved by: Scotty Neff M.D. on 11/28/2022 at 15:43
--- NOTE | 2022-11-28 13:12 | DI.RAD.S_ITS ---
PROCEDURE: XR FOREARM RT 2V INDICATIONS: Right extremity pain TECHNIQUE: 2 views of the forearm were acquired. COMPARISON: None. FINDINGS: Bones: No fractures or dislocations. Osteoarthritic changes along radial aspect of right wrist are seen. No suspicious bony lesions. Soft tissues: No suspicious soft tissue calcifications or masses. IMPRESSION: Osteoarthritic changes along radial aspect of right wrist. No acute forearm fracture or dislocation. No suspicious bony lesions. Dictated by: Scotty Neff M.D. on 11/28/2022 at 15:42 Approved by: Scotty Neff M.D. on 11/28/2022 at 15:42
--- NOTE | 2022-11-28 13:12 | DI.RAD.S_ITS ---
PROCEDURE: XR ELBOW RT MIN 3V INDICATIONS: Right extremity pain upper TECHNIQUE: 3 views of the elbow were acquired. COMPARISON: None. FINDINGS: Bones: No fractures or dislocations. No suspicious bony lesions. Soft tissues: No elbow joint effusion. No suspicious soft tissue calcifications. IMPRESSION: No elbow fracture or dislocation. No significant joint effusion. Dictated by: Scotty Neff M.D. on 11/28/2022 at 15:42 Approved by: Scotty Neff M.D. on 11/28/2022 at 15:43
== END ==
PROVIDERS: Referring Provider Nurse Practitioner Family; Visit Provider Nurse Practitioner Family
DX: M79.601 Pain in right arm (principal)
CPT/HCPCS: 73060; 73080; 73090

== ENCOUNTER 2024-02-27 15:02 | Emergency (ER) | payer OTHER, MEDICAID, SELFPAY ==
[2024-02-27 15:09] VITALS: BP 132/76; PULSE 90; RESP 22; TEMP 36.9; O2SAT 98; BMI 35.2
--- NOTE | 2024-02-27 15:17 | DI.RAD.S_ITS ---
PROCEDURE: XR CHEST 1V INDICATIONS: Shortness of breath TECHNIQUE: One view of the chest was acquired. COMPARISON: [facility], , XR CHEST 2V, 04/29/2021, 16:28. FINDINGS: Surgical changes and devices: None. Lungs and pleura: Lungs are clear. No pleural effusions or pneumothorax. Mediastinum: Mediastinal contours appear normal. Heart size is normal. Bones and chest wall: No suspicious bony lesions. Overlying soft tissues appear unremarkable. IMPRESSION: No acute cardiopulmonary pathology. Dictated by: Scotty Neff M.D. on 02/27/2024 at 15:53 Approved by: Scotty Neff M.D. on 02/27/2024 at 15:53
--- NOTE | 2024-02-27 15:47 | EKG_ITS ---
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
[2024-02-27 15:59] LABS: Add Manual Diff / Slide Review NO; Basophils Absolute Auto 0 /uL (0-100); Basophils Percent Auto 0.6 % (0-2); Eosinophils Absolute Auto 100 /uL (0-450); Eosinophils Percent Auto 1.3 % (2-4); Hematocrit 36.5 % (36-46); Hemoglobin 12.5 g/dL (12.0-16.0); Lymphocytes Absolute Auto 2700 /uL (1100-4500); Lymphocytes Percent Auto 31.9 % (25-40); Mean Corpuscular HGB Conc 34.4 % (30-36); Mean Corpuscular Hemoglobin 34.2 PG (26-34); Mean Corpuscular Volume 99.5 fL (80-100); Monocytes Absolute Auto 600 /uL (0-900); Monocytes Percent Auto 6.6 % (3-14); Neutrophils Absolute Auto 5100 /uL (1500-7000); Neutrophils Percent Auto 59.6 % (50-75); Platelet Count 318 X10^3/uL (150-400); Red Blood Cell Count 3.67 X10^6/uL (4.0-5.2); Red Cell Distribution Width 12.7 % (11.6-14.8); White Blood Cell Count 8.5 X10^3/uL (4.5-11.0)
[2024-02-27 16:04] LABS: Prothrombin Time 11.1 SECONDS (9.4-12.5)
[2024-02-27 16:10] LABS: Alanine Aminotransferase 72 IU/L (<35); Albumin 3.9 g/dL (3.5-5.0); Albumin Globulin Ratio 1.4 (1.0-2.8); Alkaline Phosphatase 89 U/L (38-126); Aspartate Aminotransferase 41 IU/L (14-36); BUN Creatinine Ratio 18.4 (6-22); Bilirubin Total 0.5 mg/dL (0.2-1.3); Blood Urea Nitrogen 14 mg/dL (7-17); Calcium 9.2 mg/dL (8.4-10.2); Carbon Dioxide 24 mmol/L (22-32); Chloride 106 mmol/L (98-107); Estimated Glomerular Filt Rate > 60 mL/min (>60); Globulin 2.8 g/dL (1.7-4.1); Glucose 111 mg/dL (70-100); HEMOLYSIS < 15 (0-50); Potassium 3.6 mmol/L (3.4-5.1); Sodium 136 mmol/L (137-145); Total Protein 6.7 g/dL (6.3-8.2)
[2024-02-27 16:21] LABS: NT-proBNP (BNP-Adult 18+) 110 pg/mL (<125); Troponin I < 0.012 ng/mL (0.01-0.034)
[2024-02-27 17:06] LABS: Adenovirus Not Detected (Not Detect); B. parapertussis Not Detected (Not Detecte); Bordetella pertussis Not Detected (Not Detect); Chlamydophila pneumoniae Not Detected (Not Detect); Coronavirus 229E Not Detected (Not Detect); Coronavirus HKU1 Not Detected (Not Detect); Coronavirus NL 63 Not Detected (Not Detect); Coronavirus OC43 Not Detected (Not Detect); Human Metapneumovirus Not Detected (Not Detect); Human Rhinovirus/Enterovirus Detected (Not Detect); Influenza A Not Detected (Not Detect); Influenza B Not Detected (Not Detect); Mycoplasma pneumoniae Not Detected (Not Detect); Parainfluenza Virus 1 Not Detected (Not Detect); Parainfluenza Virus 2 Not Detected (Not Detect); Parainfluenza Virus 3 Not Detected (Not Detect); Parainfluenza Virus 4 Not Detected (Not Detect); Respiratory Syncytial Virus Not Detected (Not Detect); SARS- CoV-2 Not Detected (Not Detecte)
--- NOTE | 2024-02-27 18:31 | ED_ITS ---
HPI - SOB/Dyspnea General Chief Complaint: Shortness of Breath/Dyspnea Stated Complaint: SOB, swelling and px rt leg and hip Time Seen by Provider: 02/27/24 17:57 Source: patient Mode of arrival: Ambulatory Limitations: no limitations History of Present Illness HPI Narrative: 43yoF with PMH amphetamine use, tobacco use presents for evaluation of 2 days of shortness of breath and right leg swelling. Patient also complaining of atraumatic back and R hip pain. Patient states she has had the back/hip pain for quite some time, but the leg swelling is new. Reporting associated nonproductive cough. Last used amphetamines yesterday. Related Data Home Medications Medication Instructions Recorded Confirmed lithium carbonate 300 mg capsule 300 mg PO BID ##0 06/15/17 04/14/22 quetiapine 100 mg tablet (Seroquel) 150 mg PO HS ##0 06/15/17 03/02/18 venlafaxine 100 mg tablet 100 mg PO QDAY ##0 06/15/17 03/02/18 Previous Rx's Medication Instructions Recorded cyclobenzaprine 10 mg tablet 10 mg PO Q8HP PRN #20 tabs 06/15/17 lithium carbonate 300 mg capsule 300 mg PO BID #28 caps 02/02/19 nystatin 100,000 unit/mL oral 4 ml PO QID #473 mL 02/02/19 suspension quetiapine 150 mg tablet,extended 150 mg PO QPM #14 tabs 02/02/19 release 24 hr (Seroquel XR) venlafaxine 100 mg tablet 100 mg PO DAILY #14 tabs 02/02/19 furosemide 40 mg tablet (Lasix) 40 mg PO DAILY #5 tabs 02/16/19 levofloxacin 0.5 % eye drops 1 drop EYE-LEFT DIRECTED #5 mL 08/11/19 prednisone 20 mg tablet 40 mg (2 x 20 mg) PO DAILY #6 tabs 11/28/22 albuterol sulfate 90 mcg/actuation 2 inh inhalation Q6H PRN shortness 02/27/24 breath activated powder inhaler of breath or wheezing #1 ea methylprednisolone 4 mg tablets in See Rx Instructions PO .COMPLEX 02/27/24 a dose pack (Medrol (Nitin)) #21 ea Allergies Allergy/AdvReac Type Severity Reaction Status Date / Time tramadol [TRAMADOL] Allergy Unknown Hallucinati Verified 11/28/22 12:32 ng Patient History Medical History Bipolar disorder Seizure disorder Social History Smoking Status: Current every day smoker Smoking Status: Current every day smoker tobacco type: cigarettes alcohol intake frequency: holidays/special occasions only Substance Use Type: methamphetamine Exam Initial Vital Signs Initial Vital Signs: Vital Signs Temperature 98.4 F 02/27/24 15:09 Pulse Rate 90 02/27/24 15:09 Respiratory Rate 22 02/27/24 15:09 Blood Pressure 132/76 02/27/24 15:09 Pulse Oximetry 98 02/27/24 15:09 Oxygen Delivery Method Room Air 02/27/24 15:09 Const: Awake, alert, no acute distress, appears older than stated age Cardiac: regular rate, regular rhythm RESP: unlabored, expiratory wheezing all lung [place] GI: Soft, nontender, nondistended, no rebound, no guarding MSK: RLE with nonpitting edema compared to LLE, pulses equal bilaterally Skin: Warm, Dry, intact, no rashes Neuro: AO x3, CN II-XII grossly intact, moves all extremities Course Orders Ordered: Discontinued Medications Albuterol (Albuterol Hfa Prepack) 1 box MISC DIRECTED ONE Stop: 02/27/24 19:46 Last Admin: 02/27/24 19:56 Dose: 1 box Documented By: HANH Albuterol/Ipratropium (Albuterol/Ipratropium 3 Ml Ampul) 9 ml INH NOW ONE Stop: 02/27/24 18:44 Last Admin: 02/27/24 19:12 Dose: 9 ml Documented By: GO Vital Signs Vital signs: Vital Signs - 8 hr 02/27/24 19:56 Pulse Rate 96 H Respiratory Rate 16 Blood Pressure 133/78 Pulse Oximetry 98 Oxygen Delivery Method Room Air MDM - SOB/Dyspnea Differential Diagnosis Differential diagnosis: Likely acute exacerbation of chronic obstructive airways disease, congestive heart failure and community acquired pneumonia Lab Data 02/27/24 15:37 02/27/24 15:37 Labs: Lab Results 02/27/24 02/27/24 Range/Units 15:20 15:37 WBC 8.5 (4.5-11.0) X10^3/uL RBC 3.67 L (4.0-5.2) X10^6/uL Hgb 12.5 (12.0-16.0) g/dL Hct 36.5 (36-46) % MCV 99.5 (80-100) fL MCH 34.2 H (26-34) PG MCHC 34.4 (30-36) % RDW 12.7 (11.6-14.8) % Plt Count 318 (150-400) X10^3/uL Neut % (Auto) 59.6 (50-75) % Lymph % (Auto) 31.9 (25-40) % [place] % (Auto) 6.6 (3-14) % Eos % (Auto) 1.3 L (2-4) % Baso % (Auto) 0.6 (0-2) % Neut # (Auto) 5100 (5363-5560) /uL Lymph # (Auto) 2700 (9601-2258) /uL [place] # (Auto) 600 (0-900) /uL Eos # (Auto) 100 (0-450) /uL Baso # (Auto) 0 (0-100) /uL PT 11.1 (9.4-12.5) SECONDS INR 1.0 (0.9-1.3) Sodium 136 L (137-145) mmol/L Potassium 3.6 (3.4-5.1) mmol/L Chloride 106 (98-107) mmol/L Carbon Dioxide 24 (22-32) mmol/L BUN 14 (7-17) mg/dL Creatinine 0.76 (0.52-1.04) mg/dL Estimated GFR > 60 (>60) mL/min BUN/Creatinine Ratio 18.4 (6-22) Glucose 111 H (70-100) mg/dL Lactate 1.0 (0.7-2.1) mmol/L Calcium 9.2 (8.4-10.2) mg/dL Total Bilirubin 0.5 (0.2-1.3) mg/dL AST 41 H (14-36) IU/L ALT 72 H (<35) IU/L Alkaline Phosphatase 89 (38-126) U/L Troponin I < 0.012 (0.01-0.034) ng/mL NT-Pro-B Natriuret Pep 110 (<125) pg/mL Total Protein 6.7 (6.3-8.2) g/dL Albumin 3.9 (3.5-5.0) g/dL Globulin 2.8 (1.7-4.1) g/dL Albumin/Globulin Ratio 1.4 (1.0-2.8) Chlamy pneumoniae PCR Not detected (Not Detect) Adenovirus (PCR) Not detected (Not Detect) B.parapertussis DNA PCR Not detected (Not Detecte) Coronavirus OC43 (PCR) Not detected (Not Detect) Coronavirus HKU1 (PCR) Not detected (Not Detect) Coronavirus 229E (PCR) Not detected (Not Detect) SARS-CoV-2 (PCR) Not detected (Not Detecte) Coronavirus NL63 (PCR) Not detected (Not Detect) Human Metapneumovir PCR Not detected (Not Detect) Influenza Type A (PCR) Not detected (Not Detect) Influenza Type B (PCR) Not detected (Not Detect) M. pneumoniae (PCR) Not detected (Not Detect) Parainfluenza 1 (PCR) Not detected (Not Detect) Parainfluenza 2 (PCR) Not detected (Not Detect) Parainfluenza 3 (PCR) Not detected (Not Detect) Parainfluenza 4 (PCR) Not detected (Not Detect) RSV (PCR) Not detected (Not Detect) Entero/Rhino (PCR) Detected H (Not Detect) Imaging Data Chest x-ray: Radiologist's Impression: PROCEDURE: XR CHEST 1V INDICATIONS: Shortness of breath TECHNIQUE: One view of the chest was acquired. COMPARISON: [facility], XR CHEST 2V, 04/29/2021, 16:28. FINDINGS: Surgical changes and devices: None. Lungs and pleura: Lungs are clear. No pleural effusions or pneumothorax. Mediastinum: Mediastinal contours appear normal. Heart size is normal. Bones and chest wall: No suspicious bony lesions. Overlying soft tissues appear unremarkable. IMPRESSION: No acute cardiopulmonary pathology. Dictated by: Scotty Neff M.D. on 02/27/2024 at 15:53 Approved by: Scotty Neff M.D. on 02/27/2024 at 15:53 US - DVT: Radiologist's Impression: PROCEDURE: US PERIPH VENOUS LOW EXTREM RT INDICATIONS: RLE SWELLING TECHNIQUE: Real-time imaging, as well as color and pulse Doppler interrogation, were performed of the lower extremity deep veins from the inguinal ligament to the popliteal fossa, with documentation of the visualized calf veins. COMPARISON: None. FINDINGS: The common femoral, femoral, popliteal, and the visualized calf veins are normally compressible, and free of intraluminal thrombus. Color and pulse Doppler demonstrate normal phasic intraluminal flow. There is normal augmentation response to distal compression maneuver. IMPRESSION: No findings of lower extremity deep venous thrombosis. Dictated by: Slick Cardona M.D. on 02/27/2024 at 19:31 Approved by: Slick Cardona M.D. on 02/27/2024 at 19:33 [facility] Narrative Medical decision making narrative: Well-appearing patient with 2 days of shortness of breath and right lower extremity swelling. Also reporting longstanding right hip pain and stating that she feels like she may have pinched a nerve. Patient does have wheezing on pulmonary exam, however she was saturating well on room air and speaking in complete sentences without dyspnea. Blood work, chest x-ray, ultrasound of lower extremity ordered. DuoNebs ordered for wheezing. Patient reports feeling significantly better after DuoNeb administration, wheezing has improved. Ultrasound negative for DVT. Chest x-ray negative for infection or edema. Other laboratory work without significant abnormality. Patient did test positive for rhino virus, which is likely contributing to her symptoms. Patient counseled on lab and imaging findings. Albuterol inhaler and steroid pack sent to pharmacy of choice. Patient counseled on the importance of primary care follow up and a referral number provided on a business card. Discharge Plan Departure Patient Disposition: Home Clinical Impression: Right hip pain, Shortness of Breath, Rhinovirus Instructions: DI for Viral Upper Respiratory Infection -- Adult Activity Restrictions/Additional Instructions: Your blood work, ultrasound, and chest x-ray today were normal. You did test positive for rhino virus, which is a virus that causes upper respiratory infections. Take the steroids and inhaler as prescribed. Follow up with a primary care doctor. Prescriptions: New albuterol sulfate 90 mcg/actuation aerosol powdr breath activated 2 inh inhalation Q6H PRN (Reason: shortness of breath or wheezing) Qty: 1 0RF methylprednisolone [Medrol (Nitin)] 4 mg tablets,dose pack See Rx Instructions .ROUTE .COMPLEX Qty: 21 0RF Rx Instructions: for 6 days No Action prednisone 20 mg tablet 40 mg PO DAILY Qty: 6 0RF venlafaxine 100 MG tablet 100 mg PO QDAY Qty: 0 quetiapine [Seroquel] 100 MG tablet 150 mg PO HS Qty: 0 lithium carbonate 300 MG capsule 300 mg PO BID Qty: 0 cyclobenzaprine 10 MG tablet 10 mg PO Q8HP PRNQty: 20 0RF lithium carbonate 300 mg capsule 300 mg PO BID Qty: 28 0RF quetiapine [Seroquel XR] 150 mg tablet extended release 24 hr 150 mg PO QPM Qty: 14 0RF venlafaxine 100 mg tablet 100 mg PO DAILY Qty: 14 0RF nystatin 100,000 unit/mL suspension 4 ml PO QID Qty: 473 0RF Rx Instructions: administer 1/2 of dose in each side of the mouth furosemide [Lasix] 40 mg tablet 40 mg PO DAILY Qty: 5 0RF levofloxacin 0.5 % drops 1 drop EYE-LEFT DIRECTED Qty: 5 0RF Rx Instructions: 2 gtt l eye q 2h while awake for 2 days then q 6h for next 5 days Referrals: Miscellaneous,Doctor, MD [Primary Care Provider] - Stand Alone Forms: Patient Portal/API
--- NOTE | 2024-02-27 18:43 | DI.US.S_ITS ---
PROCEDURE: US PERIPH VENOUS LOW EXTREM RT INDICATIONS: RLE SWELLING TECHNIQUE: Real-time imaging, as well as color and pulse Doppler interrogation, were performed of the lower extremity deep veins from the inguinal ligament to the popliteal fossa, with documentation of the visualized calf veins. COMPARISON: None. FINDINGS: The common femoral, femoral, popliteal, and the visualized calf veins are normally compressible, and free of intraluminal thrombus. Color and pulse Doppler demonstrate normal phasic intraluminal flow. There is normal augmentation response to distal compression maneuver. IMPRESSION: No findings of lower extremity deep venous thrombosis. Dictated by: Slick Cardona M.D. on 02/27/2024 at 19:31 Approved by: Slick Cardona M.D. on 02/27/2024 at 19:33
[2024-02-27 19:12] VITALS: PULSE 89; RESP 20; O2SAT 99
[2024-02-27] MEDS: ALBUTEROL/IPRATROPIUM 3 ML AMPUL 9 ML INH (19:12)
[2024-02-27 19:56] VITALS: BP 133/78; PULSE 96; RESP 16; O2SAT 98
[2024-02-27] MEDS: ALBUTEROL HFA PREPACK 1 BOX MISC (19:56)
== END 2024-02-27 19:57 | disposition home or self-care (01) ==
PROVIDERS: Emergency Medicine; Emergency Provider Emergency Medicine
DX: R06.02 Shortness of breath (principal); M25.551 Pain in right hip; B34.8 Other viral infections of unspecified site; R06.2 Wheezing; R60.9 Edema, unspecified; Z79.01 Long term (current) use of anticoagulants; Z11.52 Encounter for screening for COVID-19
CPT/HCPCS: 36415; 71045; 80053; 83605; 83880; 84484; 85025; 85610; 87633; 93005; 93971; 99283; 99284

== ENCOUNTER 2024-06-11 00:41 | Emergency (ER) | payer OTHER, SELFPAY ==
[2024-06-11 00:43] VITALS: BP 127/80; PULSE 111; RESP 17; TEMP 37; O2SAT 98; BMI 36.1
--- NOTE | 2024-06-11 00:57 | ED_ITS ---
HPI - Female Genitourinary General Chief complaint: Skin/Abscess/Foreign Body Stated complaint: tampon stuck inside her for 3 days Time Seen by Provider: 06/11/24 00:53 Source: patient, RN notes reviewed and old records reviewed Mode of arrival: Ambulatory Limitations: no limitations History of Present Illness HPI Narrative: 43-year-old female presents with concern for tampon stuck in the vaginal canal past 3 days. Patient states she had started her. Her significant other had come home while she was sleeping was awakened they had sexual activity and she had forgotten that it was present she has not been able to extract it since. She states she has had some increased pelvic pain she has not had any fevers but has had some nausea and vomiting today. Denies any dysuria urgency or frequency. No issues with bowel movements. She was notes a little bit of odor discharge just today. She attempted to remove it at home herself but was unsuccessful. She states no concerns for STIs. States she takes medications for anxiety and mood. She states she has had prior hysterectomy and bilateral tubal. Patient states allergy to tramadol. She does use tobacco daily, occasional alcohol. Related Data Home Medications Medication Instructions Recorded Confirmed lithium carbonate 300 mg capsule 300 mg PO BID ##0 06/15/17 04/14/22 quetiapine 100 mg tablet (Seroquel) 150 mg PO HS ##0 06/15/17 03/02/18 venlafaxine 100 mg tablet 100 mg PO QDAY ##0 06/15/17 03/02/18 Previous Rx's Medication Instructions Recorded cyclobenzaprine 10 mg tablet 10 mg PO Q8HP PRN #20 tabs 06/15/17 lithium carbonate 300 mg capsule 300 mg PO BID #28 caps 02/02/19 nystatin 100,000 unit/mL oral 4 ml PO QID #473 mL 02/02/19 suspension quetiapine 150 mg tablet,extended 150 mg PO QPM #14 tabs 02/02/19 release 24 hr (Seroquel XR) venlafaxine 100 mg tablet 100 mg PO DAILY #14 tabs 02/02/19 furosemide 40 mg tablet (Lasix) 40 mg PO DAILY #5 tabs 02/16/19 levofloxacin 0.5 % eye drops 1 drop EYE-LEFT DIRECTED #5 mL 08/11/19 prednisone 20 mg tablet 40 mg (2 x 20 mg) PO DAILY #6 tabs 11/28/22 albuterol sulfate 90 mcg/actuation 2 inh inhalation Q6H PRN shortness 02/27/24 breath activated powder inhaler of breath or wheezing #1 ea methylprednisolone 4 mg tablets in See Rx Instructions PO .COMPLEX 02/27/24 a dose pack (Medrol (Nitin)) #21 ea clindamycin HCl 300 mg capsule 300 mg PO Q6H 5 days #20 caps 06/11/24 Allergies Allergy/AdvReac Type Severity Reaction Status Date / Time tramadol [TRAMADOL] Allergy Unknown Hallucinati Verified 11/28/22 12:32 ng Review of Systems Review of Systems ROS Unobtainable: All systems reviewed & are unremarkable except as noted in HPI and below Patient History Medical History (Updated 06/11/24 @ 01:15 by Esha Rowland DO) Bipolar disorder Seizure disorder tobacco type: cigarettes Exam Narrative Exam Narrative: GENERAL: Alert and oriented x three, female in mild distress HEENT: Head normocephalic, atraumatic, EOMI, pupils reactive, face symmetric, moist mucous membranes NECK: Supple, full range of motion CARDIOVASCULAR: Regular rate and rhythm without murmurs, rubs or gallops. RESPIRATORY: Breath sounds equal bilaterally, no wheezes rales or rhonchi. ABDOMEN: Soft, nontender. Normoactive bowel sounds all 4 quadrants. No guarding or rebound, rigidity, no mass : No CVA tenderness. Female: external vaginal examl normal, no vaginal bleeding, patient has a scant amount of discharge, tampon was visualized was extracted in its entirety with ring forceps. Patient tolerated well. No cervical motion tenderness, otherwise normal speculum exam, no adnexal tenderness/mass. Bimanual exam is normal, no enlarged or tender uterus. Non- gravid. EXTREMITIES: Normal range of motion, no clubbing or edema. Neurovascularly intact NEUROLOGICAL: Cranial nerves II through XII grossly intact. Moving all extremities SKIN: Warm, dry, no petechiae, no rashes or lesions. Initial Vital Signs Initial Vital Signs: Vital Signs Temperature 98.6 F 06/11/24 00:43 Pulse Rate 111 H 06/11/24 00:43 Respiratory Rate 17 06/11/24 00:43 Blood Pressure 127/80 06/11/24 00:43 Pulse Oximetry 98 06/11/24 00:43 Oxygen Delivery Method Room Air 06/11/24 00:43 Course Orders Ordered: Discontinued Medications Clindamycin HCl (Clindamycin 150 Mg Capsule) 300 mg PO NOW ONE Stop: 06/11/24 01:12 Last Admin: 06/11/24 01:21 Dose: 300 mg Documented By: FRANDY Ibuprofen (Ibuprofen 400 Mg Tablet) 800 mg PO NOW ONE Stop: 06/11/24 00:57 Last Admin: 06/11/24 01:02 Dose: 800 mg Documented By: FRANDY Ondansetron HCl (Ondansetron 4 Mg Odt) 4 mg SL NOW ONE Stop: 06/11/24 00:57 Last Admin: 06/11/24 01:02 Dose: 4 mg Documented By: FRANDY Ondansetron HCl (Ondansetron 4 Mg Odt Prepack) 1 bottle MISC DIRECTED ONE Stop: 06/11/24 01:16 Last Admin: 06/11/24 01:21 Dose: 1 bottle Documented By: FRANDY Vital Signs Vital signs: Vital Signs - 8 hr 06/11/24 00:43 Temperature 98.6 F Pulse Rate 111 H Respiratory Rate 17 Blood Pressure 127/80 Pulse Oximetry 98 Oxygen Delivery Method Room Air MDM - Female Genitourinary MDM Narrative Medical decision making narrative: 43-year-old female with concern for retained tampon has been present for proximally 3 days. Was visualized removed. Patient was given some ibuprofen a dose of Zofran. She tolerated procedure well. We will give a short course of antibiotics prophylactically and strict return precautions. Discharge Plan Departure Patient Disposition: Home Clinical Impression: Retained tampon Activity Restrictions/Additional Instructions: Please follow up if you are not having significant improvement of your symptoms over the next 24 hours. I did give you a prescription for prophylactic antibiotics. Prescription was sent to [facility] in [place]. You can take 1 tablet of Zofran every 6 hours as needed for nausea. Please return for fevers, worsening abdominal back or flank pain, any persistent vomiting, lightheadedness or passing out, difficulty with urination, worsening discharge or odor or other new or concerning changes. Prescriptions: New clindamycin HCl 300 mg capsule 300 mg PO Q6H 5 Days Qty: 20 0RF No Action prednisone 20 mg tablet 40 mg PO DAILY Qty: 6 0RF venlafaxine 100 MG tablet 100 mg PO QDAY Qty: 0 quetiapine [Seroquel] 100 MG tablet 150 mg PO HS Qty: 0 lithium carbonate 300 MG capsule 300 mg PO BID Qty: 0 cyclobenzaprine 10 MG tablet 10 mg PO Q8HP PRNQty: 20 0RF lithium carbonate 300 mg capsule 300 mg PO BID Qty: 28 0RF quetiapine [Seroquel XR] 150 mg tablet extended release 24 hr 150 mg PO QPM Qty: 14 0RF venlafaxine 100 mg tablet 100 mg PO DAILY Qty: 14 0RF nystatin 100,000 unit/mL suspension 4 ml PO QID Qty: 473 0RF Rx Instructions: administer 1/2 of dose in each side of the mouth furosemide [Lasix] 40 mg tablet 40 mg PO DAILY Qty: 5 0RF levofloxacin 0.5 % drops 1 drop EYE-LEFT DIRECTED Qty: 5 0RF Rx Instructions: 2 gtt l eye q 2h while awake for 2 days then q 6h for next 5 days albuterol sulfate 90 mcg/actuation aerosol powdr breath activated 2 inh inhalation Q6H PRN (Reason: shortness of breath or wheezing) Qty: 1 0RF methylprednisolone [Medrol (Nitin)] 4 mg tablets,dose pack See Rx Instructions .ROUTE .COMPLEX Qty: 21 0RF Rx Instructions: for 6 days Referrals: Humaira Ghosh MD [Primary Care Provider] - Stand Alone Forms: Patient Portal/API/Survey
[2024-06-11] MEDS: ONDANSETRON 4 MG ODT SL (01:02)
[2024-06-11] MEDS: IBUPROFEN 400 MG TABLET 800 MG PO (01:02)
[2024-06-11] MEDS: CLINDAMYCIN 150 MG CAPSULE 300 MG PO (01:21)
[2024-06-11] MEDS: ONDANSETRON 4 MG ODT PREPACK 1 BOTTLE MISC (01:21)
== END 2024-06-11 01:24 | disposition home or self-care (01) ==
PROVIDERS: Emergency Provider Emergency Medicine; PCP Internal Medicine Geriatric Medicine
DX: T19.2XXA Foreign body in vulva and vagina, initial encounter (principal); W44.8XXA Other foreign body entering into or through a natural orifice, initial encounter
CPT/HCPCS: 99283